=== PATIENT | female | born 1955 | race African-American/Black ===

== ENCOUNTER 2017-12-08 22:41 | Emergency (ER) | payer OTHER, SELFPAY ==
[2017-12-08 23:22] LABS: #Basophils 0.1 thou/uL (0.0-0.2); #Eosinphils 0.1 thou/uL (0.0-0.7); #Lymphocytes 1.3 thou/uL (1.20-3.40); #Monocytes 0.3 thou/uL (0.11-0.59); %Basophils 1.4 % (0.0-1.0); %Eosinophils 1.2 % (0.0-10.0); %Lymphocytes 27.4 % (21.0-51.0); %Monocytes 6.7 % (0.0-10.0); %Neutrophils 63.3 % (42.0-75.0); Hemoglobin 11.3 g/dL (12.0-16.0); Mean Corpuscular HGB CONC 35.8 g/dL (32.0-36.0); Mean Corpuscular Volume 78.3 fL (78.0-98.0); Mean Platelet Volume 7.2 fL (7.4-10.4); Platelet Count 271 thou/uL (130-400); RBC Distribution Width 11.8 % (11.5-14.5); Red Blood Cell (RBC) Count 4.04 mill/uL (4.20-5.40); White Blood Cell (WBC) Count 4.7 thou/uL (4.8-10.8)
[2017-12-08 23:35] LABS: ALT (SGPT) 19 U/L (8-55); AST (SGOT) 26 U/L (5-34); Albumin 4.1 g/dL (3.4-4.8); Alkaline Phosphatase 106 U/L (40-150); Anion Gap 14 mmol/L (10-20); BUN (Urea Nitrogen) 12 mg/dL (9.8-20.1); Bilirubin, Total 0.4 mg/dL (0.2-1.2); Calc. Creatinine Clearance 0 mL/min (70-130); Calcium 9.5 mg/dL (7.8-10.44); Carbon Dioxide 26 mmol/L (23-31); Chloride 106 mmol/L (98-107); Estimated GFR-MDRD Greater than 90; Globulin 2.9 g/dL (2.4-3.5); Glucose 114 mg/dL (80-115); Lipase 20 U/L (8-78); Potassium 3.8 mmol/L (3.5-5.1); Sodium 142 mmol/L (136-145)
[2017-12-08] MEDS ORDERED: Metoclopramide HCl 10 MG/2 ML VIAL ONE (23:35)
[2017-12-08 23:36] LABS: CKMB 1.8 ng/mL (0-6.6); Troponin I Less than 0.010 ng/mL (< 0.028)
[2017-12-09] MEDS ORDERED: Ketorolac Tromethamine 30 MG/ML VIAL ONE (00:46)
[2017-12-09 00:53] LABS: Bilirubin Negative (Negative); Blood, Urine Negative (Negative); Clarity Clear (Clear); Glucose, Urine (Dipstick) Negative (Negative); Leukocyte Trace (Negative); Nitrite Negative (Negative); Protein, Urine (Dipstick) Negative (Neg-Trace); Urobilinogen 0.2 mg/dL (0.2-1.0)
[2017-12-09 00:57] LABS: Bacteria/HPF Rare-Few HPF (None Seen); RBC/HPF None Seen HPF (0-3); Squamous Epithelial 0-3 HPF (0-3); WBC/HPF 0-3 HPF (0-3)
--- NOTE | 2017-12-09 09:49 | CT ---
PRELIMINARY REPORT/[facility]/EMERGENTY AFTER-HOURS PROCEDURE CT Head Without Intravenous Contrast CLINICAL HISTORY: 62 years old, female; Pain; Headache; Headache not specified; Patient HX: Onset [place]; S tonight TECHNIQUE: Axial computed tomography images of the head/brain without intravenous contrast. All CT scans at this facility use at least one of these dose optimization techniques: automated exposure control; Ma and/ or kV adjustment per patient size (includes targeted exams where dose is matched to clinical indication); or iterative reconstruction. COMPARISON: No relevant prior studies available. FINDINGS: Brain: Focal area of hypoattenuation within the anterior limb right internal capsule (series 2, image 13), possibly chronic, although subacute infarction could have this appearance. Scattered areas of h ypoattenuation, likely chronic small vessel ischemic change, demyelination, or gliosis. Ventricles: Normal. Bones/joints: Normal. No acute fracture. Soft tissues: Normal. Vasculature: Atherosclerotic vascular calcifications. Sinuses: Normal. Mastoid air cells: Normal as visualized. No mastoid effusion. IMPRESSION: 1. Focal area of hypoattenuation within the anterior limb right internal capsule (series 2, image 13) , possibly chronic, although subacute infarction could have this appearance. Recommend comparison to previous studies if available. If none available, consider MRI with diffusion-weighted imaging for mo re definitive evaluation. 2. Incidental/non-acute findings are described above. Thank you for allowing us to participate in the care of your patient. Dictated and Authenticated by: Aydin Leiva MD FINAL REPORT CT OF THE BRAIN WITHOUT CONTRAST: DATE: 12/08/17. FINDINGS: A noncontrast CT was done for evaluation of headache. The ventricles are normal in size with no shif t. No intracranial bleeding, mass, or edema was seen. There is a focal low-density area in the ante rior limb of the internal capsule on the right side on slice 13. This could either be an old lacunar infarct or area of chronic ischemic change or a sign of subacute stroke. MRI would be needed to yoni e the finding more appropriately. Elsewhere, there were no findings of acute stroke. A small amount of low-density is seen in some of the deep white matter consistent with chronic ischemic changes. T he visible paranasal sinuses are clear. IMPRESSION: 1. Focal low-density area in the right anterior internal capsule. See discussion above. MRI might be considered to see if this is subacute or old. 2. Mild chronic ischemic changes elsewhere. Report in agreement with preliminary reading by [facility]. POS: HOME
== END 2017-12-09 01:32 | disposition short-term general hospital (02) ==
LOC: BURERS 22:41
DX: A08.4 Viral intestinal infection, unspecified (principal); R00.1 Bradycardia, unspecified; I10 Essential (primary) hypertension; E66.9 Obesity, unspecified; Z79.899 Other long term (current) drug therapy
CPT/HCPCS: 36415; 70450; 80053; 81003; 81015; 82553; 83605; 83690; 83880; 84484; 85025; 93005; 94760; 96365; 96375; J1885; J2765